=== PATIENT | male | born 1985 | race Caucasian/White ===

== ENCOUNTER 2023-04-20 23:47 | Emergency (ER) | payer OTHER ==
[~2023-04-20] VITALS: Ht 180.3 cm; Wt 68.0 kg
[2023-04-21] MEDS ORDERED: NARCAN4 MG NAS (00:22)
[2023-04-21 00:25] VITALS: BP 126/90
== END 2023-04-21 00:25 | disposition left against medical advice (07) ==
LOC: ED 23:47 → EDBD 23:48 → ED 23:48
DX: T40.411A Poisoning by fentanyl or fentanyl analogs, accidental (unintentional), initial encounter (principal); T50.7X1A Poisoning by analeptics and opioid receptor antagonists, accidental (unintentional), initial encounter; X58.XXXA Exposure to other specified factors, initial encounter
CPT/HCPCS: 99284